=== PATIENT | male | born 1985 | race Caucasian/White ===

== ENCOUNTER 2019-02-25 15:44 | Emergency (ER) | payer SELFPAY ==
[2019-02-26] MEDS ORDERED: VOLTAREN75 MG PO (10:21)
[2019-02-26] MEDS ORDERED: BACLOFEN20 M1 PO (10:21)
== END 2019-02-25 16:00 | disposition left against medical advice (07) ==
LOC: D.ER 15:44
DX: M25.559 Pain in unspecified hip (principal); M79.609 Pain in unspecified limb

== ENCOUNTER 2019-02-26 09:55 | Emergency (ER) | payer SELFPAY ==
[~2019-02-26] VITALS: Ht 182.9 cm; Wt 77.3 kg
[2019-02-26 10:00] VITALS: Ht 182.9 cm; Wt 77.3 kg
[2019-02-26] MEDS ORDERED: BACLOFEN20 M1 PO (10:21)
[2019-02-26] MEDS ORDERED: VOLTAREN75 MG PO (10:21)
[2019-02-26 11:07] VITALS: BP 152/88
== END 2019-02-26 11:08 | disposition home or self-care (01) ==
LOC: D.ER 09:55
DX: M54.32 Sciatica, left side (principal); M54.5 Low back pain